=== PATIENT | female | born 1980 | race Caucasian/White ===

== ENCOUNTER 2016-09-18 06:58 | Day surgery (SDC) | payer OTHER ==
[2016-09-17 17:55] VITALS: BMI 40.6
[~2016-09-18] VITALS: Ht 162.6 cm; Wt 108.0 kg
[2016-09-18] VITALS (17 sets, daily range): BP systolic 90–121; BP diastolic 44–73; PULSE 77–116; RESP 14–20; Ht 162.6 cm; Wt 108.0 kg
--- NOTE | 2016-09-18 00:31 | PREOPHP ---
DATE OF ADMISSION: 09/18/2016 PROCEDURE: Cervical cerclage. HISTORY OF PRESENT ILLNESS: This is to a 36-year-old female, 1, para 0 with an EDC of 02/03. This patient started seeing me September 15 with the perinatologist's consultation for a cer clage as soon as possible due to cervical incompetence. The patient is 19 and 6/7th week, actually 20 weeks and had an incompetent cervix diagnosed by the perinatologist and she was referred right away for a cerclage. The cervix was short with some dilatation. PAST MEDICAL HISTORY: She had a history of lap band and lost over 100 pounds. ALLERGIES: 1. PENICILLIN. 2. LATEX. SOCIAL HISTORY: No other pertinent history. FAMILY HISTORY: Also diabetes on her dad's side. PHYSICAL EXAMINATION: VITAL SIGNS: Stable. She is 5 feet 4 inches. She weighs 240 pounds and her blood pressure is 118/ 80. HEAD AND NECK: Normal. CHEST: Clear. HEART: Normal sinus rhythm. LUNGS: Clear. BREASTS: Soft, nontender, no masses. ABDOMEN: Soft, nontender, no masses. Uterus at 20 weeks and heart tones were florina l. EXTREMITIES: Normal. PELVIC: With a short cervix with fingertip dilatation and membranes intact. EXTREMITIES: Normal with normal pulses and no edema. DIAGNOSES: 1. Twenty weeks' . 2. Cervical incompetence. 3. Previous laparoscopic band. 4. Obesity. PLAN: She is undergoing a Lam cerclage. The patient has been advised of the possible risks an d possible complications of the procedure with her alternatives and options. Written information was provided. She had no more questions and agreed to go ahead with the procedure with full understand ing and no more questions. Dictated By: ELIGIO HUGHES/BEST Conf#: [id number] DID#: [id number]
[~2016-09-18 06:58] MED LIST: FER325 PO; FOLI-49 PO; PRENAT PO
[2016-09-18 08:33] LABS: BASOPHIL # 0.1 10^3/ul (0.0-0.1); BASOPHILS % 0.5 % (0.0-2.0); EOSINOPHILS # 0.2 10^3/ul (0.0-0.5); EOSINOPHILS % 1.7 % (0.0-7.0); HEMATOCRIT 34.9 % (37.0-47.0); HEMOGLOBIN 12.1 g/dl (12.0-16.0); LYMPHOCYTES # 2.1 10^3/ul (0.8-2.9); LYMPHOCYTES % 18.8 % (15.0-51.0); MEAN CORPUSCULAR HEMOGLOBIN 30.2 pg (29.0-33.0); MEAN CORPUSCULAR HGB CONC 34.6 g/dl (32.0-37.0); MEAN CORPUSCULAR VOLUME 87.4 fl (82.0-101.0); MEAN PLATELET VOLUME 7.8 fl (7.4-10.4); MONOCYTE # 0.7 10^3/ul (0.3-0.9); MONOCYTES % 5.8 % (0.0-11.0); NEUTROPHIL # 8.2 10^3/ul (1.6-7.5); NEUTROPHILS % 73.2 % (39.0-77.0); PLATELET COUNT 259 10^3/UL (140-440); RED CELL DISTRIBUTION WIDTH 13.3 % (11.5-14.5); UNCORRECTED WBC 11.2 10^3/ul (4.8-10.8); WHITE BLOOD COUNT 11.2 10^3/ul (4.8-10.8)
[2016-09-18 08:37] LABS: CONDITION 1
[2016-09-18 08:42] LABS: INR 1.01; PROTIME 13.3 Sec (12.2-14.2)
[2016-09-18 08:43] LABS: PARTIAL THROMBOPLASTIN TIME 26.9 Sec (25.0-35.0)
[2016-09-18] MEDS ORDERED: MIDAZOLAM 1 MG/ML 2 ML INJ ONE (09:46)
[2016-09-18] MEDS ORDERED: METOCLOPRAMIDE 10 MG INJ ONE (10:07)
[2016-09-18] MEDS ORDERED: HYDROmorphONE (0.2 MG/ML) 10ML SYG IV PRN ×3 (10:30)
[2016-09-18] MEDS ORDERED: DIPHENHYDRAMINE 50 MG INJ IV PRN (10:30)
[2016-09-18] MEDS ORDERED: METOCLOPRAMIDE 10 MG INJ IV PRN (10:30)
[2016-09-18] MEDS ORDERED: MEPERIDINE 25 MG INJ IV PRN (10:30)
[2016-09-18] MEDS ORDERED: CEFAZOLIN 1 GM INJ ONE (10:45)
[2016-09-18] MEDS ORDERED: EPHEDrine SULFATE 50 MG/5 ML SYG ONE (10:45)
--- NOTE | 2016-09-18 11:27 | PD.PPDC ---
GENERAL SUPERVISOR Discharge Instruction Condition Patient Condition: Good Diet Diet: Resume Regular Diet Activity/Restrictions Activity: Bedrest May be up to bathroom May be up for meals May Shower Restrictions: No Exercising No Lifting No Driving No Sexual Activity Nothing in the Vagina No [place] No Tampons, douche Follow-up Follow-up with Physician: 1, Week/Weeks Return to clinic for TAIL [facility]YER Instructions: Fever greater than 101 Chills Worsening abdominal pain Excessive Vaginal Bleeding More than 2 pads per hour Unable to tolerate diet ELIGIO CASTRO MD Sep 18, 2016 11:26
--- NOTE | 2016-09-18 11:29 | OPPN ---
Date/Time of Note Date/Time of Note DATE: 09/18/16 TIME: 11:27 Operative/Procedure Note Pre-Operative Diagnosis cervical incompetence 20 weeks Post-Operative Diagnosis same Surgeon: ELIGIO CASTRO MD Anesthesiologist: XOCHILT MARMOLEJO MD Estimated blood loss: minimal Specimens: Not Applicable Complications: None Anesthesia type: spinal ELIGIO CASTRO MD Sep 18, 2016 11:29
[2016-09-18] MEDS ORDERED: HYDROCODONE/APAP (5/325) TAB PO PRN (11:30)
[2016-09-18] MEDS ORDERED: NIFEdipine 10 MG CAP PO SCH (12:00)
--- NOTE | 2016-09-18 13:29 | OPR ---
DATE OF OPERATION: 09/18/2016 OPERATION PERFORMED: Cervical cerclage Lam procedure. PREOPERATIVE DIAGNOSES: Incompetent cervix, 20-week . POSTOPERATIVE DIAGNOSIS: Incompetent cervix, 20-week SURGEON: Eligio Naik MD ANESTHESIA: Dr. Banuelos DESCRIPTION OF PROCEDURE: The patient was given spinal anesthesia and placed in the supine position . The perineal and vaginal area were prepped and draped and a vaginal speculum was applied. The an terior and posterior cervix was held with a ring forceps and a #5 mersilene suture was passed throug h the cervix at the cervical vaginal junction at 12 o'clock, 3 o'clock, 6 o'clock, 3 o'clock, and 12 o'clock again, was suture tied and the stumps of the sutures were tacked to both sides with a singl e stitch with #1 nylon. The procedure was finished with a very small amount of bleeding, about 5 mL . There was no rupture of membranes. The patient tolerated the procedure well and was sent to the recovery room in good condition and stable. Dictated By: ELIGIO HUGHES/BEST Conf#: [id number] DID#: [id number]
[2016-09-18] MEDS ORDERED: NIFEdipine (XL) 30 MG TAB PO ONE (17:00)
[2016-09-18] MEDS ORDERED: TERBUTALINE 1 MG/ML INJ SC PRN (17:00)
--- NOTE | 2016-09-19 00:13 | PN ---
Date/Time of Note Date/Time of Note DATE: 09/19/16 TIME: 00:11 OB Subjective Subjective Subjective 36 yo P0 @ 20wks gestation, w incompetent cervix, s/p cerclage was having ctx, now diminshed; no complaints OB Objective Objective Objective Abdomen- gravid, n/t [place]- no ctx OB Assessment/Plan Other Assessment: 36 yo s/p cercalge placement, no ctx Other plan: Since it is midnight, patient would like to stay in hospital until morning d/c home tomorrow ENE CHILDRESS MD Sep 19, 2016 00:13
[2016-09-19] MEDS ORDERED: CEPHALEXIN 500 MG CAP PO ONE (08:00)
[2016-09-19] MEDS ORDERED: NIFEdipine 10 MG CAP PO ONE (08:00)
== END 2016-09-19 10:30 | disposition home or self-care (01) ==
LOC: SDS 06:58 → OBG 17:57 → SDS 09-19 10:30
PROVIDERS: ATTEND Obstetrics & Gynecology
DX: O34.32 Maternal care for cervical incompetence, second trimester (principal); Z3A.20 20 weeks gestation of pregnancy; E66.9 Obesity, unspecified; Z68.41 Body mass index [BMI] 40.0-44.9, adult
CPT/HCPCS: 59320; 85025; 85610; 85730; 86900; 86901; J0690; J2250; J2765; Z7512; Z7610

== ENCOUNTER 2016-09-28 01:39 | Emergency (ER) | payer OTHER ==
[~2016-09-28] VITALS: Ht 162.6 cm; Wt 109.0 kg
[2016-09-28 01:50] VITALS: Ht 162.6 cm; Wt 109.0 kg
[2016-09-28] MEDS ORDERED: LIDOCAINE/MYLANTA 40 ML BTL PO STA (02:47)
[2016-09-28] MEDS ORDERED: ONDANSETRON 4 MG INJ IV STA (02:47)
[2016-09-28] MEDS ORDERED: SOD CHLORIDE 0.9% 500 ML IV STA (02:47)
[2016-09-28 03:26] LABS: BASOPHILS % 0.3 % (0.0-2.0); EOSINOPHILS # 0.3 10^3/ul (0.0-0.5); EOSINOPHILS % 2.2 % (0.0-7.0); HEMATOCRIT 37.5 % (37.0-47.0); HEMOGLOBIN 12.8 g/dl (12.0-16.0); LYMPHOCYTES # 2.2 10^3/ul (0.8-2.9); LYMPHOCYTES % 16.6 % (15.0-51.0); MEAN CORPUSCULAR HEMOGLOBIN 29.7 pg (29.0-33.0); MEAN CORPUSCULAR HGB CONC 34.2 g/dl (32.0-37.0); MEAN CORPUSCULAR VOLUME 87.1 fl (82.0-101.0); MEAN PLATELET VOLUME 7.9 fl (7.4-10.4); MONOCYTE # 0.8 10^3/ul (0.3-0.9); MONOCYTES % 6.4 % (0.0-11.0); NEUTROPHIL # 9.7 10^3/ul (1.6-7.5); NEUTROPHILS % 74.5 % (39.0-77.0); PLATELET COUNT 320 10^3/UL (140-440); RED BLOOD COUNT 4.31 10^6/ul (4.20-5.40); RED CELL DISTRIBUTION WIDTH 13.6 % (11.5-14.5)
[2016-09-28 03:28] LABS: ADD UMIC YES; URINE BILIRUBIN (Dip) NEGATIVE (NEGATIVE); URINE BLOOD (Dip) TRACE (NEGATIVE); URINE COLOR LT. YELLOW (YELLOW); URINE GLUCOSE (Dip) NEGATIVE (NEGATIVE); URINE KETONES (Dip) NEGATIVE (NEGATIVE); URINE LEUKOCYTE ESTERASE (Dip) NEGATIVE (NEGATIVE); URINE NITRITE (Dip) NEGATIVE (NEGATIVE); URINE TOTAL PROTEIN (Dip) NEGATIVE (NEGATIVE); URINE UROBILINOGEN (Dip) 0.2 E.U./dL (0.1-1.0)
[2016-09-28 03:30] LABS: CONDITION 1
[2016-09-28 03:33] LABS: ALBUMIN 3.3 g/dl (3.3-4.9); POTASSIUM 4.1 mmol/L (3.5-5.1)
[2016-09-28 03:35] LABS: BILIRUBIN,INDIRECT 0.1 mg/dl (0-1.1); BILIRUBIN,TOTAL 0.1 mg/dl (0.2-1.3); CREATININE 0.55 mg/dl (0.44-1.00)
[2016-09-28 03:36] LABS: ALBUMIN/GLOBULIN RATIO 1.06; CALCIUM 9.3 mg/dl (8.4-10.2); TOTAL PROTEIN 6.4 g/dl (6.1-8.1)
[2016-09-28 03:55] LABS: SQUAMOUS EPITHELIAL CELL,UR MODERATE
--- NOTE | 2016-09-28 05:11 | ERD ---
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 HPI Is a 28-year-old female with epigastric abdominal pain for the past 2-3 days. Pain is gotten progressively worse. Pain is burning sensation. Makes it difficult for patient to breathe. Patient is 21 weeks . No nausea. No vomiting. No fevers. No chills. No other current complaints. ROS All systems reviewed and are negative except as per history of present illness. Medications Home Meds Reported Medications Multivit/Min/Fol Ac/Iron/Pren* ( S*) 1 Tab Tab, 1 TAB PO DAILY, TAB 09/17/16 Ferrous Sulfate* (Ferrous Sulfate*) 325 Mg Tabec, 325 MG PO DAILY, TAB 09/17/16 Folic Acid* (Folic Acid*) 1 Mg Tablet, 1 MG PO DAILY, TAB 09/17/16 Allergies Allergies: Coded Allergies: latex (Verified Allergy, Severe, HIVES, 09/18/16) amoxicillin (Verified Allergy, Intermediate, SWELLING, 09/18/16) shrimp (Verified Allergy, Unknown, swelling, 09/18/16) Uncoded Allergies: hot dogs (Allergy, Severe, diarrhea/, 09/18/16) PMhx/Soc History of Surgery: Yes (LAP BAND) Anesthesia Reaction: No Hx Neurological Disorder: No Hx Respiratory Disorders: No Hx Cardiac Disorders: No Hx Psychiatric Problems: No Hx Miscellaneous Medical Probl: No Hx Alcohol Use: No Hx Substance Use: No Hx Tobacco Use: No Smoking Status: Never smoker Physical Exam Vitals Vital Signs Date Time Temp Pulse Resp B/P Pulse Ox O2 Delivery O2 Flow Rate FiO2 09/28/16 01:50 97.7 90 22 131/81 100 Physical Exam Const: [] Head: Atraumatic Eyes: Normal Conjunctiva ENT: Normal External Ears, Nose and Mouth. Neck: Full range of motion..~ No meningismus. Resp: Clear to auscultation bilaterally Cardio: Regular rate and rhythm, no murmurs Abd: Soft, non tender, non distended. Normal bowel sounds Skin: No petechiae or rashes Back: No midline or flank tenderness Ext: No cyanosis, or edema Neur: Awake and alert Psych: Normal Mood and Affect Result Diagram: 09/28/1625309/28/16253 Results 24 hrs Laboratory Tests Test 09/28/16 02:54 Alanine Aminotransferase (ALT/SGPT) 18IU/L Albumin 3.3g/dl Albumin/Globulin Ratio 1.06 Alkaline Phosphatase 74IU/L Anion Gap 13 Aspartate Amino Transf (AST/SGOT) 17IU/L Basophils # 0.010^3/ul Basophils % 0.3% Blood Urea Nitrogen 7mg/dl Calcium Level 9.3mg/dl Carbon Dioxide Level 25mmol/L Chloride Level 107mmol/L Creatinine 0.55mg/dl Direct Bilirubin 0.00mg/dl Eosinophils # 0.310^3/ul Eosinophils % 2.2% Globulin 3.10g/dl Glucose Level 94mg/dl Hematocrit 37.5% Hemoglobin 12.8g/dl Indirect Bilirubin 0.1mg/dl Lipase 218U/L Lymphocytes # 2.210^3/ul Lymphocytes % 16.6% Mean Corpuscular Hemoglobin 29.7pg Mean Corpuscular Hemoglobin Concent 34.2g/dl Mean Corpuscular Volume 87.1fl Mean Platelet Volume 7.9fl Monocytes # 0.810^3/ul Monocytes % 6.4% Neutrophils # 9.710^3/ul Neutrophils % 74.5% Nucleated Red Blood Cells # 0.010^3/ul Nucleated Red Blood Cells % 0.0/100WBC Platelet Count 01381^3/UL Potassium Level 4.1mmol/L Red Blood Count 4.3110^6/ul Red Cell Distribution Width 13.6% Sodium Level 141mmol/L Total Bilirubin 0.1mg/dl Total Protein 6.4g/dl Urine Bilirubin NEGATIVE Urine Clarity CLEAR Urine Color LT. YELLOW Urine Glucose NEGATIVE% Urine Hemoglobin TRACE Urine Ketones NEGATIVE Urine Leukocyte Esterase NEGATIVE Urine Microscopic RBC 2-5/HPF Urine Microscopic WBC 0-2/HPF Urine Nitrite NEGATIVE Urine Specific [place] 1.015 Urine Squamous Epithelial Cells MODERATE Urine Total Protein NEGATIVE Urine Urobilinogen 0.2 E.U./dL Urine pH 6.0 White Blood Count 13.010^3/ul Current Medications Medications (Trade) Dose Ordered Sig/Nila Route PRN Reason Start Time Stop Time Status Last Admin Dose Admin Sodium Chloride (NS) 500 ml @ 500 mls/hr Q1H STAT IV 09/28/16 02:47 09/28/16 03:46 DC 09/28/16 03:10 Ondansetron HCl (Zofran Inj) 4 mg ONCE STAT IV 09/28/16 02:47 09/28/16 02:48 DC 09/28/16 03:09 Miscellaneous Medication (Gi Cocktail (2)) 40 ml ONCE STAT PO 09/28/16 02:47 09/28/16 02:48 DC 09/28/16 03:09 Procedures/MDM CBC: [no e/o of systemic infection or severe anemia] CMP: [no e/o severe acidosis, alkalosis, renal failure, diabetic ketoacidosis, liver disease] Lipase: [no e/o pancreatitis] PT/INR: [normal coagulation] Urine: [no e/o acute infection or hematuria] Medical decision-making: This patient comes in with essentially gastritic-like pain. Pain since resolved with administration of GI cocktail. She will be discharged upstairs to OB L&D for monitoring. Departure Diagnosis: Primary Impression: Abdominal pain Abdominal location: epigastric Qualified Code: R10.13 - Epigastric pain Additional Impression: Weeks of gestation: 21 weeks Qualified Code: Z3A.21 - 21 weeks gestation of Condition: Stable DG DEL ANGEL Sep 28, 2016 05:11
[2016-09-28 05:25] VITALS: BP 120/74; PULSE 81; RESP 18; TEMP 98
[2016-09-28] MEDS ORDERED: PRO20 PO (06:26)
[2016-09-28] MEDS ORDERED: CEPH500C PO (06:27)
== END 2016-09-28 06:01 | disposition home or self-care (01) ==
LOC: E/R 01:39
DX: O26.892 Other specified pregnancy related conditions, second trimester (principal); R10.13 Epigastric pain; Z3A.21 21 weeks gestation of pregnancy; Z91.040 Latex allergy status
CPT/HCPCS: 36415; 80053; 81001; 83690; 85025; 96374; J2405; J7040; Z7502; Z7610; 81003

== ENCOUNTER 2016-09-28 06:10 | Inpatient (IN) | payer OTHER ==
[~2016-09-28] VITALS: Ht 160 cm; Wt 108.9 kg
[2016-09-28] MEDS ORDERED: PRO20 PO (06:26)
[2016-09-28] MEDS ORDERED: CEPH500C PO (06:27)
[2016-09-28 06:28] VITALS: Ht 160 cm; Wt 108.9 kg
[2016-09-28] MEDS ORDERED: BUTORPHANOL 2 MG INJ IV PRN (08:30)
--- NOTE | 2016-09-28 08:46 | TRIAGE ---
OB Triage Datetime Report Generated by CPN: 09/28/2016 08:46 Datetime: 09/28/2016 08:07 Stage of : OB Triage Datetime: 09/28/2016 08:05 Stage of : OB Triage Labor Evaluation Frequency: NONE Monitor Mode: External Heart Rate FHR Baseline Rate: 150 Monitor Mode: External US Variability: Moderate 6-25 bpm Accelerations: 10X10 Decelerations: None Category: Category I Pain Assessment Pain Scale: 4 Pain Presence: Constant Pain Type: Dull Pain Location: Back Pain Goal: 3 Pain Assessment Comments: PT STATES THAT HER BACK MAY BE HURTING BECAUSE SHE BEEN IN THE GURNEY SI NCE SHE GOT HERE IN THE HOSPITAL. PAIN MEDICATION OFFER AND PT DENIES THE NEED FOR PAIN MEDICATIO N AT THIS TIME. Datetime: 09/28/2016 08:00 Stage of : OB Triage Labor Evaluation Frequency: NONE Monitor Mode: External Monitor Mode: External US Pain Assessment Pain Scale: 4 Pain Presence: Constant Pain Type: N/A Pain Goal: 3 Datetime: 09/28/2016 07:23 Monitor Mode: External US Comments: OFF Datetime: 09/28/2016 07:17 Stage of : OB Triage Labor Evaluation Frequency: NONE Monitor Mode: External Heart Rate FHR Baseline Rate: 150 Monitor Mode: External US Variability: Moderate 6-25 bpm Accelerations: 10X10 Decelerations: None Category: Category I Comments: UNABLE TO KEEP BABY ON MONITOR, DOPPLER DONE AND A STRIP DONE FOR 4 MINUTES Datetime: 09/28/2016 07:16 Stage of : OB Triage Datetime: 09/28/2016 07:00 Stage of : OB Triage Temperature Route: Oral Labor Evaluation Frequency: 0 (Annotations: PT. OBESE) Monitor Mode: External Resting Tone [place]: Relaxed Heart Rate FHR Baseline Rate: 140 (Annotations: IN THE MIDDLE NEAR PUBIC HAIR LINE) Monitor Mode: Doppler Accelerations: HEARD Datetime: 09/28/2016 06:43 Assessment Type: Triage Maternal Assessment Level of Consciousness: Fully Conscious DTR's/Clonus: DTRs 2+; No Clonus Headache: Denies Blurred Vision: No Respiratory Effort: Labored (Annotations: PT. FEELS LITTLE HAEVY ON CHEST 98% SATURATION ON ROOM AIR) Breath Sounds, Left: Clear and Equal Breath Sounds, Right: Clear and Equal Nausea/Vomiting: Present RUQ Epigastric Pain: Denies Lower Extremities Edema: Bilateral Lower Extremities Upper Extremities Edema: None Facial Edema: None Fall Risk Assessment History of Falling: (0) No Secondary Diagnosis: (0) No Ambulatory Aid: (0) Bedrest/Nurse Assist IV Therapy: (0) No Gait: (0) Normal/Bedrest/Immobile Mental Status: (0) Oriented to Own Ability Fall Score: 0 Fall Risk Score Definition: No Risk: No action required Datetime: 09/28/2016 06:38 Time of Arrival: 09/28/2016 06:10 EGA: 21.5 Arrived By: Wheelchair Arrived From: Emergency Dept Chief Complaint: CAME TO ER FOR SOB, CLEARED FROM ER, NOW HERE TO CLEAR BABY AND MOM Movement: Present Contractions: Denies/Absent Rupture of Membranes: Denies Vaginal Bleeding: None Recent Sexual Intercouse: Denies Patient Complaints: None Additional Patient Complaints: HAD CERCLAGE DONE ON 09/18/16 FOR SHORT CERVIX PT. GOES TO DR REYNOSO PERINATOLOGIST AT [facility], NEXT APPT. 09/29/16 AT 1100 Time Provider Notified: 09/28/2016 07:18 Provider Notified: ABUSLEME Initial Plan: EFM, ASSESSMENT, CALL MD FOR ORDER CX LENGHT Datetime: 09/19/2016 07:37 Assessment Type: ANTEPARTUM OBSERVATION POST CERCLAGE FOR CRAMPING Maternal Assessment Level of Consciousness: Fully Conscious DTR's/Clonus: DTRs 2+; No Clonus Headache: Denies Blurred Vision: No Respiratory Effort: Unlabored; Regular Rhythm; Equal Expansion Breath Sounds, Left: Clear and Equal Breath Sounds, Right: Clear and Equal Nausea/Vomiting: Denies RUQ Epigastric Pain: Denies Lower Extremities Edema: None Degree: None Upper Extremities Edema: None Degree: None Facial Edema: None Fall Risk Assessment History of Falling: (0) No Secondary Diagnosis: (0) No Ambulatory Aid: (0) Bedrest/Nurse Assist IV Therapy: (0) No Gait: (0) Normal/Bedrest/Immobile Mental Status: (0) Oriented to Own Ability Fall Score: 0 Fall Risk Score Definition: No Risk: No action required Datetime: 09/19/2016 07:30 Stage of : Recovery Datetime: 09/19/2016 07:18 Respiratory Effort: Unlabored Breath Sounds, Left: Clear and Equal Breath Sounds, Right: Clear and Equal Pain Presence: None/Denies Vaginal Bleeding: Scant Datetime: 09/19/2016 06:30 Labor Evaluation Frequency: 0 Monitor Mode: External Datetime: 09/19/2016 05:53 Pain Assessment Pain Scale: 0 Pain Presence: None/Denies Pain Type: N/A Pain Goal: 0 Datetime: 09/19/2016 05:30 Labor Evaluation Frequency: 0 Monitor Mode: External Contraction Comments: Pt moving positions, reports no cramping at this time Datetime: 09/19/2016 04:30 Labor Evaluation Frequency: 0 Monitor Mode: External Datetime: 09/19/2016 03:30 Labor Evaluation Frequency: 0 Monitor Mode: External Datetime: 09/19/2016 02:30 Labor Evaluation Frequency: 0 Monitor Mode: External Datetime: 09/19/2016 01:30 Contraction Comments: PT REPORTS FEELING CRAMPING 2-3 TIMES IN THE LAST 2 HOURS; "I STARTED FEELIN G ACHES IN BACK AND A LITTLE PAIN SINCE MY EXAMS IN THIS PAST WEEK, BUT BEFORE MY APPTS I DIDN'T FEE L ANYTHING." Datetime: 09/19/2016 01:13 Pain Assessment Pain Scale: 0 Pain Presence: None/Denies Pain Type: N/A Pain Goal: 0 Datetime: 09/19/2016 01:05 Pain Assessment Pain Scale: 0 Pain Presence: None/Denies Pain Type: N/A Pain Goal: 0 Datetime: 09/19/2016 01:04 Pain Assessment Pain Scale: 0 Pain Presence: None/Denies Pain Type: N/A Pain Goal: 0 Datetime: 09/19/2016 01:03 Pain Assessment Pain Scale: 0 Pain Presence: None/Denies Pain Type: N/A Pain Goal: 0 Datetime: 09/19/2016 00:00 Monitor Mode: External Quality: Mild Resting Tone [place]: Relaxed Contraction Comments: CRAMP X1/HR Datetime: 09/18/2016 23:27 Pain Assessment Pain Scale: 0 Pain Presence: None/Denies Pain Type: N/A Pain Goal: 0 Datetime: 09/18/2016 23:26 Pain Assessment Pain Scale: 0 Pain Presence: None/Denies Pain Type: N/A Pain Goal: 0 Datetime: 09/18/2016 23:06 Vaginal Exam Membrane Status: Intact Datetime: 09/18/2016 23:00 Monitor Mode: External Quality: Mild Resting Tone [place]: Relaxed Contraction Comments: CRAMP X1 Datetime: 09/18/2016 22:00 Monitor Mode: External Quality: Mild Resting Tone [place]: Relaxed Contraction Comments: LIGHT CRAMPING PER PT REPORT Datetime: 09/18/2016 21:00 Monitor Mode: External Quality: Mild Resting Tone [place]: Relaxed Contraction Comments: LIGHT CRAMPING PER PT REPORT Datetime: 09/18/2016 20:25 Assessment Type: ANTEPARTUM OBSERVATION POST CERCLAGE FOR CRAMPING Maternal Assessment Level of Consciousness: Fully Conscious DTR's/Clonus: DTRs 2+; No Clonus Headache: Denies Blurred Vision: No Respiratory Effort: Unlabored; Regular Rhythm; Equal Expansion Breath Sounds, Left: Clear and Equal Breath Sounds, Right: Clear and Equal Nausea/Vomiting: Denies RUQ Epigastric Pain: Denies Lower Extremities Edema: None Degree: None Upper Extremities Edema: None Degree: None Facial Edema: None Fall Risk Assessment History of Falling: (0) No Secondary Diagnosis: (0) No Ambulatory Aid: (0) Bedrest/Nurse Assist IV Therapy: (0) No Gait: (0) Normal/Bedrest/Immobile Mental Status: (0) Oriented to Own Ability Fall Score: 0 Fall Risk Score Definition: No Risk: No action required Pain Assessment Pain Scale: 0 Pain Presence: None/Denies Pain Type: N/A Pain Goal: 0 Datetime: 09/18/2016 20:03 Monitor Mode: External Quality: Mild Resting Tone [place]: Relaxed Contraction Comments: PT REPORTS CRAMPING 1-2 TIMES IN HR Datetime: 09/18/2016 19:45 Stage of : Antepartum Datetime: 09/18/2016 18:50 Comments: reports of UC by patient Pain Assessment Pain Scale: 6 Pain Presence: Intermittent Pain Type: Cramping; Contraction Pain Location: Abdomen Pain Goal: 5 Pain Relief Measures: Comfort Measures
[2016-09-28] MEDS: LACTATED RINGER'S 1,000 ML IV SCH ×3 (09:15→23:58)
[2016-09-28] MEDS: DOCUSATE SODIUM 100 MG CAP PO SCH (09:49)
[2016-09-28] MEDS: FERROUS SULFATE (EC) 325 MG TAB PO SCH (09:49)
[2016-09-28] MEDS: MULTIVIT/MIN/FOLATE/IRON/PREN TAB PO SCH (09:49)
--- NOTE | 2016-09-28 10:04 | RADRPT ---
PROCEDURE: Limited OB ultrasound for cervical length. CLINICAL INDICATION: labor. Recent cerclage. TECHNIQUE: Sonographic evaluation to assess the cervical length was performed. Transvaginal imagi ng of the gravid uterus was performed. COMPARISON: None available FINDINGS: The transvaginal cervical length equals 0.7 cm. There is a 1.7 cm rounded echogenic structure of the proximal portion of the cervix which may be related to recent cerclage. presentation is cepha lic. The placenta is anterior. There is no evidence of abruption or placenta previa. Positive fet al heart tones are seen. The heart rate equal 143 bpm. IMPRESSION: 1. Cervical length equals 0.7 by transvaginal examination. There is a 1.7 cm echogenic rounded lesio n just deep to the cervix which is nonspecific and may be related to recent cerclage. Clinical ferny elation and follow-up is recommended. RPTAT: KK .Preston Carney MD, MD Date Time Electronically viewed and signed by .Preston Carney MD, on 09/28/2016 10:04 .B/
[2016-09-28] MEDS ORDERED: CLINDAMYCIN 900 MG INJ IM ONE (12:00)
[2016-09-28] MEDS ORDERED: CLINDAMYCIN 300 MG INJ IV SCH (12:00)
[2016-09-28] MEDS: NIFEdipine 10 MG CAP PO SCH ×2 (12:37→18:28)
[2016-09-28] MEDS ORDERED: CLINDAMYCIN 600 MG/D5W (PMX) 50 ML IVPB SCH ×2 (13:00→18:00)
[2016-09-28] MEDS ORDERED: PROGESTERONE 100 MG CAP VAG SCH (21:00)
--- NOTE | 2016-09-28 22:06 | HP ---
DATE OF ADMISSION: 09/28/2016 HISTORY OF PRESENT ILLNESS: The patient is a 36-year-old G1, P0, who presents at ____-1/2 weeks wit h a short cervix and a probable UTI. The patient was seen in the office by Dr. Naik and found t o have a short cervix with some abdominal pain and some urinary symptoms. The patient at that point was to be admitted to the hospital for observation. ____ fluid, no vaginal bleeding, positive feta l movement. PAST MEDICAL HISTORY: None. PAST SURGICAL HISTORY: None. MEDICATIONS: Procardia. PHYSICAL EXAMINATION: VITAL SIGNS: Stable. HEART: Regular rate and rhythm. LUNGS: Clear to auscultation bilaterally. ABDOMEN: Soft, nontender. No rebound or guarding. Fundal height is 20 cm. EXTREMITIES: There is no edema. DIAGNOSTIC DATA: Ultrasound shows an intrauterine , cervical length of 0.8 mm. The patien t is status post cerclage approximately 1 week ago. ASSESSMENT: Intrauterine at ____-1/2 weeks with incompetent cervix, status post cerclage 1 week ago now with urinary symptoms. The patient will be admitted for observation, started on clin damycin for urinary tract infection. Procardia for possible uterine contractions and also progester one for a short cervix. Risks and benefits of admission discussed with patient. The patient will a lso be in consultation with Charles and further management will also be based on MFM's suggestions. Dictated By: ZULEMA AGEE MD /NTS Conf#: [id number] DID#: [id number] CC: ELIGIO NAIK MD;*EndCC*
[2016-09-28] MEDS: CLINDAMYCIN 600 MG/D5W (PMX) 50 ML IVPB SCH (23:57)
--- NOTE | 2016-09-28 23:57 | RADRPT ---
PROCEDURE: US OB. CLINICAL INDICATION: Possible spontaneous rupture of membranes. TECHNIQUE: Multiple sonographic images of the pelvis were obtained. The images were reviewed on a PACS workstation. COMPARISON: No prior studies are available for comparison. FINDINGS: There is a single viable intrauterine gestation. Cardiac activity is present with 152 beats per min barb. There is a cephalic presentation. Measurements were made in order to determine age. The results are as follows: BPD =5.43 cm HC =19.88 cm AC =17.32 cm FL =3.66 cm. Estimated gestational age of approximately 22 weeks and 1 day. The estimated date of delivery is 01/31/2017. The EFW = 468 g . There are no adnexal masses.. IMPRESSION: Single live intrauterine gestation of approximately 22 weeks and 1 day. The estimated date of deliv sudarshan is 01/31/2017 . RPTAT: UU Physician Titus Date Time Electronically viewed and signed by Physician Titus on 09/28/2016 23:57 RS/
[2016-09-29 01:09] LABS: INR 0.99; PARTIAL THROMBOPLASTIN TIME 28.6 Sec (25.0-35.0); PROTIME 13.1 Sec (12.2-14.2)
[2016-09-29] MEDS: NIFEdipine 10 MG CAP PO SCH ×3 (01:17→11:53)
[2016-09-29 01:21] LABS: BASOPHILS % 0.3 % (0.0-2.0); EOSINOPHILS # 0.2 10^3/ul (0.0-0.5); EOSINOPHILS % 1.8 % (0.0-7.0); HEMATOCRIT 35.1 % (37.0-47.0); LYMPHOCYTES # 2.8 10^3/ul (0.8-2.9); LYMPHOCYTES % 23.9 % (15.0-51.0); MEAN CORPUSCULAR HEMOGLOBIN 29.8 pg (29.0-33.0); MEAN CORPUSCULAR HGB CONC 34.1 g/dl (32.0-37.0); MEAN CORPUSCULAR VOLUME 87.2 fl (82.0-101.0); MEAN PLATELET VOLUME 8.1 fl (7.4-10.4); MONOCYTE # 0.7 10^3/ul (0.3-0.9); MONOCYTES % 5.9 % (0.0-11.0); NEUTROPHIL # 7.8 10^3/ul (1.6-7.5); NEUTROPHILS % 68.1 % (39.0-77.0); PLATELET COUNT 290 10^3/UL (140-440); RED BLOOD COUNT 4.03 10^6/ul (4.20-5.40); RED CELL DISTRIBUTION WIDTH 13.4 % (11.5-14.5); UNCORRECTED WBC 11.5 10^3/ul (4.8-10.8); WHITE BLOOD COUNT 11.5 10^3/ul (4.8-10.8)
[2016-09-29 01:25] LABS: CONDITION 1; POTASSIUM 3.8 mmol/L (3.5-5.1)
[2016-09-29 01:27] LABS: CREATININE 0.54 mg/dl (0.44-1.00)
[2016-09-29 01:28] LABS: ALBUMIN/GLOBULIN RATIO 0.96; TOTAL PROTEIN 6.1 g/dl (6.1-8.1)
[2016-09-29 01:29] LABS: CALCIUM 9.4 mg/dl (8.4-10.2)
[2016-09-29] MEDS ORDERED: AZITHROMYCIN 500 MG in SOD CHLORIDE 0.9% 250 ML IVPB SCH (02:00)
[2016-09-29] MEDS: AZITHROMYCIN 500MG/NS (PMX) 250 ML IV SCH (02:14)
--- NOTE | 2016-09-29 02:47 | PN ---
Date/Time of Note Date/Time of Note DATE: 09/29/16 TIME: 02:32 OB Subjective Subjective Subjective Nurse called to evaluate patient. She states patient is c/o leakage of fluid. The patient is a 36 y/o G1 with SIUP at 21 6/7 wks, cx insufficiency (CL: 0.8) and possible UTI admitted for close follow up. OB Objective Objective Objective General: Patient appears well, alert and oriented, NAD, appropriate mood and affect Heart: Regular rhythm and rate. No murmur. Normal S1, S2 Lung: clear to auscultation (bilateral) ABD: gravid, soft, non-tender. Back: No CVA tenderness (B/L) LE: No clubbing, cyanosis, edema, thigh or calf tenderness bilaterally FHT: 135, regular (by nurse) Contractions: Occasional Speculum exam: LOF, clear. Nitrazine is positive OB Assessment/Plan Other plan: 36 y/o G1 with SIUP at 21 6/7 wks, cx insufficiency (CL: 0.8), PPROM and possible UTI: - Check vital sign and close follow up for s/sx of infection - Ob- US performed, minimal AF - Exam, us result, management (expectant vs termination) with R/B/A discussed with patient in detail. She expressed understanding. She is currently undecided - Ab: Azithro or Erythromycine added to clindamyccine (Currently on clinda due to UTI) - MFM consult MEDARDO PAINTER Sep 29, 2016 02:46
[2016-09-29] MEDS: CLINDAMYCIN 600 MG/D5W (PMX) 50 ML IVPB SCH ×3 (06:26→17:47)
[2016-09-29] MEDS: FERROUS SULFATE (EC) 325 MG TAB PO SCH (09:08)
[2016-09-29] MEDS: MULTIVIT/MIN/FOLATE/IRON/PREN TAB PO SCH (09:08)
[2016-09-29] MEDS: DOCUSATE SODIUM 100 MG CAP PO SCH (09:08)
[2016-09-29] MEDS: LACTATED RINGER'S 1,000 ML IV SCH ×2 (11:52→21:39)
--- NOTE | 2016-09-29 12:21 | PN ---
Date/Time of Note Date/Time of Note DATE: 09/29/16 TIME: 12:08 OB Subjective Subjective Subjective patient ROM last nite at around 9pm now with cerclage in place but with some pain leukocytosis, possible impending labor and delivery. patient was explained. OB Objective HEENT: WNL Heart: Rhythm Normal Lungs: Clear, Equal Abdomen: WNL Extremities: Normal Reflexes: Normal Cervical Dilatation: Fingertip Effacement: 75% Membranes: Ruptured Amniotic Fluid: Unevaluable Heart Rate: 120's ELIGIO CASTRO MD Sep 29, 2016 12:21
--- NOTE | 2016-09-29 12:32 | RADRPT ---
PROCEDURE: CERVICAL LENGTH ULTRASOUND CLINICAL INDICATION: labor. TECHNIQUE: Trans-vaginal imaging of the cervical canal was performed utilizing morgan-scale imaging. Sagittal and transverse images were obtained. Trans-abdominal images were also obtained. The dionicio ges were reviewed on a PACS workstation. COMPARISON: 09/28/2016. FINDINGS: There is a single live intrauterine . heart rate is 129 beats per minute. Position is cephalic and placenta is anterior grade 1. There is no placenta previa. The cervix is closed with a length of 3.6 cm. Incidental note is made of oligohydramnios with maxim um vertical pocket of amniotic fluid measuring 1.1 cm. IMPRESSION: 1. Cervical length is 3.6 cm. 2. Oligohydramnios. RPTAT: QQ .Michael Gastelum MD, Date Time Electronically viewed and signed by .Michael Gastelum MD, on 09/29/2016 12:31 .R/
[2016-09-29 12:47] LABS: BASOPHILS % 0.4 % (0.0-2.0); EOSINOPHILS # 0.2 10^3/ul (0.0-0.5); EOSINOPHILS % 1.6 % (0.0-7.0); HEMATOCRIT 34.8 % (37.0-47.0); HEMOGLOBIN 11.9 g/dl (12.0-16.0); LYMPHOCYTES # 1.7 10^3/ul (0.8-2.9); LYMPHOCYTES % 16.5 % (15.0-51.0); MEAN CORPUSCULAR HEMOGLOBIN 29.9 pg (29.0-33.0); MEAN CORPUSCULAR HGB CONC 34.3 g/dl (32.0-37.0); MEAN CORPUSCULAR VOLUME 87.2 fl (82.0-101.0); MEAN PLATELET VOLUME 7.8 fl (7.4-10.4); MONOCYTE # 0.5 10^3/ul (0.3-0.9); MONOCYTES % 4.8 % (0.0-11.0); NEUTROPHILS % 76.7 % (39.0-77.0); PLATELET COUNT 281 10^3/UL (140-440); RED BLOOD COUNT 3.99 10^6/ul (4.20-5.40); RED CELL DISTRIBUTION WIDTH 13.7 % (11.5-14.5); UNCORRECTED WBC 10.4 10^3/ul (4.8-10.8); WHITE BLOOD COUNT 10.4 10^3/ul (4.8-10.8)
[2016-09-29 12:55] LABS: CONDITION 1
[2016-09-29] MEDS ORDERED: MISOPROSTOL 200 MCG TAB PO ONE (22:00)
--- NOTE | 2016-09-29 22:20 | PN ---
Date/Time of Note Date/Time of Note DATE: 09/29/16 TIME: 22:14 OB Subjective Subjective Subjective Patient had SROM this morning having cramps, she is 21.5 weeks had cerclage early this month. in view of her early gestational age for a viable she was advised to remove the cerclage. Perinatology agreed to the management. at 10 pm we removed the cerclage without complications. patient will be induced with cytotec. OB Objective HEENT: WNL Heart: Rhythm Normal Lungs: Clear Abdomen: WNL Extremities: Normal Reflexes: Normal OB Assessment/Plan Reason for admission: rupture of membranes Plan: Induction ELIGIO CASTRO MD Sep 29, 2016 22:19
[2016-09-30] MEDS ORDERED: MISOPROSTOL 200 MCG TAB PO SCH
[2016-09-30] MEDS: CLINDAMYCIN 600 MG/D5W (PMX) 50 ML IVPB SCH ×4 (00:17→18:39)
[2016-09-30] MEDS: MISOPROSTOL 200 MCG TAB PO SCH ×2 (02:14→08:29)
[2016-09-30] MEDS: AZITHROMYCIN 500MG/NS (PMX) 250 ML IV SCH (02:14)
[2016-09-30] MEDS ORDERED: FENTAnyl 2MCG/ML-ROPIV 0.2% 100 ML ONE (03:52)
[2016-09-30] MEDS ORDERED: NALOXONE (0.4 MG/ML) INJ IV PRN ×2 (04:30→05:30)
[2016-09-30] MEDS ORDERED: FENTAnyl 2MCG/ML-ROPIV 0.2% 100 ML BAG EPI SCH ×2 (04:30→05:30)
[2016-09-30] MEDS: LACTATED RINGER'S 1,000 ML IV SCH ×3 (06:06→19:00)
[2016-09-30] MEDS: MULTIVIT/MIN/FOLATE/IRON/PREN TAB PO SCH (08:31)
[2016-09-30] MEDS: DOCUSATE SODIUM 100 MG CAP PO SCH (08:31)
[2016-09-30] MEDS: FERROUS SULFATE (EC) 325 MG TAB PO SCH (08:31)
[2016-09-30] MEDS ORDERED: DIPHENHYDRAMINE 50 MG INJ IM PRN (09:00)
[2016-09-30] MEDS ORDERED: CLINDAMYCIN 600 MG/D5W (PMX) 50 ML IVPB SCH (12:00)
[2016-09-30] MEDS ORDERED: DIPHENHYDRAMINE 50 MG INJ IV PRN (15:00)
[2016-09-30] MEDS ORDERED: MISOPROSTOL 200 MCG TAB VAG SCH (15:00)
[2016-09-30] MEDS ORDERED: MISOPROSTOL 200 MCG TAB SL STA (17:31)
[2016-09-30] MEDS ORDERED: ACETAMINOPHEN 325 MG TAB PO PRN (19:00)
[2016-09-30] MEDS ORDERED: OXYTOCIN 30 UNITS/LR 500 ML IV SCH (20:00)
[2016-09-30] MEDS ORDERED: OXYTOCIN 30 UNITS/LR 500 ML IVPB ONE (20:00)
--- NOTE | 2016-09-30 20:14 | LDN ---
Date/Time of Note Date/Time of Note DATE: 09/30/16 TIME: 20:07 Delivery Summary Patient was admitted at 21 + weeks with short cervix, underwent Cerclage placement and was receiving Nifedipine. Had SROM and was undergoing induction due to extreme prematurity and PPROM. I was called for delivery when the patient was complete and had urge to push. baby delivered spontaneously. Skin color brownish and echymotic.Does not looked a recent demise. not macerated. Scalp uneven and unsymetric. After clamping of the cord baby was handed to the mom. cord was left clamped and continued with cytotec 600 mg sublingual awaiting for spontaneous expulsion. after 2 hours exam performed, noted the placenta to be palpable at the external cervical os. Gentle traction applied and the cord was avulsed in mid segment. then by vaginal exam placenta that was already in the vagina and palpable at the cervical os was grasped and by gentle pulling it was removed and reassessed , noted to be complete. there was a small clot at the margin of the placenta covering an area of about 5 cm noted, can not r/o abruption. Placenta was sent to pathology. Placenta Delivered: Spontaneously Meconium: none Perineum intact?: Yes Perineal laceration: 0 Anesthesia type: Epidural Sponge & Needle done & correct: Yes All needle counts correct: Yes Any foreign bodies felt in the: No Problems: Delivery Information Apgars 1 Minute: 0 5 Minute: 0 Suctioning Nose & mouth suctioned at marica: No Delee suction performed: No Umbilical Cord Nuchal cord present X: 0 Cord Blood was obtained: No CESARIO CONTEH MD Sep 30, 2016 20:14
[2016-09-30] MEDS ORDERED: IBUPROFEN 600 MG TAB PO PRN ×2 (20:30→21:00)
[2016-09-30] MEDS ORDERED: MISOPROSTOL 200 MCG TAB SL SCH (21:00)
[2016-09-30] MEDS ORDERED: HYDROCODONE/APAP (5/325) TAB PO PRN (21:00)
--- NOTE | 2016-09-30 21:18 | DELSUM ---
Delivery Summary A-C Datetime Report Generated by CPN: 09/30/2016 21:18 DELIVERY PERSONNEL Bakery Deliverer: Turner, Nicole MATERNAL INFORMATION Delivery Anesthesia: Epidural Medications in Delivery: CYTOTEC 600 MCG SL Estimated Blood Loss (ml): 200 Placenta Cultured: Yes Maternal Complications: PROM; Other Other Maternal Complications: CVL 0.7 RN Comments: DEMISE @ 22 WEEKS LABOR SUMMARY EDC: 02/03/2017 00:00 No. Babies in Womb: 1 Attempted: No Labor Anesthesia: Epidural LABOR INFORMATION Reason for Induction: PROM; Other Reason for Induction- Other: CVL 0.7 CERCLAGE REMOVED; FETUS NOT VIABLE Onset of Labor: 09/30/2016 22:15 Complete Dilatation: 09/30/2016 17:00 Cervical Ripening Agents: Cytotec @ 200 MCG GIVEN VAGINALLY Cervical Ripening Agents: Cytotec @ 200MCG Cervical Ripening Agents: Cytotec @ (Annotations: 200 MCG PO) Cervical Ripening Agents: Cytotec @ 200 MCG PO Cervical Ripening Agents: Cytotec @ Oxytocin: N/A Group B Beta Strep: Not Done Antibiotics # of Doses: 9 Antibiotics Time of Last Dose: 1221 Steroids Given: None Reason Steroids Not Administered: Not Applicable MEMBRANES Membranes Rupture Method: Spontaneous Rupture of Membranes: 09/28/2016 21:00 Length of Rupture (hr): 44.17 Amniotic Fluid Color: Clear Amniotic Fluid Amount: Moderate (Annotations: 10 INCH DIAMETER [place] OF FLUID NOTED ON CHUX.) Amniotic Fluid Odor: None STAGES OF LABOR Stage 1 hr: -5 Stage 1 min: -15 Stage 2 hr: 0 Stage 2 min: 10 Stage 3 hr: 2 Stage 3 min: 32 Total Time in Labor hr: -2 Total Time in Labor min: -33 VAGINAL DELIVERY Episiotomy: None Laceration Extension: N/A Laceration Type: None Count Comment: BOA KIT USED AT BEDSIDE BABY A INFORMATION Infant Delivery Date/Time: 09/30/2016 17:10 Method of Delivery: Vaginal Born in Route : No : N/A Forceps: N/A Vacuum Extraction: N/A Shoulder Dystocia : No SHOULDER DYSTOCIA BABY A Delivery Date/Time: 09/30/2016 17:10 PRESENTATION/POSITION BABY A Presentation: Cephalic Cephalic Presentation: Vertex Breech Presentation: N/A PLACENTA INFORMATION BABY A Placenta Delivery Time : 09/30/2016 19:42 Placenta Method of Delivery: Manual Removal Placenta Status: Delivered INFORMATION BABY A Gestational Age at Delivery: 22.0 Gestational Status: - <34 Weeks Infant Outcome : Stillborn Sex: Male WEIGHT/LENGTH BABY A Infant Birthweight (gm): 500 Weight (lb): 1 Infant Weight (oz): 2 Infant Length (in): 19.00 Infant Length (cm): 48.26 CORD INFORMATION BABY A Nuchal Cord : N/A Cord Blood Taken: N/A Suction: None
[2016-09-30] MEDS: HYDROCODONE/APAP (5/325) TAB PO PRN (22:10)
[2016-10-01] MEDS ORDERED: WITCH HAZEL/GLYCERIN PAD PR PRN (01:00)
[2016-10-01] MEDS ORDERED: CARBOPROST 250 MCG INJ IM PRN (01:00)
[2016-10-01] MEDS ORDERED: OXYTOCIN 30 UNITS/LR 500 ML IV PRN (01:00)
[2016-10-01] MEDS ORDERED: MISOPROSTOL 200 MCG TAB PR PRN (01:00)
[2016-10-01] MEDS ORDERED: SENNA/DOCUSATE NA (8.6MG/50MG) TAB PO PRN (01:00)
[2016-10-01] MEDS ORDERED: BENZOCAINE 20% 56 ML SPRAY TOP PRN (01:00)
[2016-10-01] MEDS: LACTATED RINGER'S 1,000 ML IV* SCH ×2 (01:21→08:57)
[2016-10-01] MEDS: CLINDAMYCIN 600 MG/D5W (PMX) 50 ML IVPB SCH ×3 (01:35→11:33)
[2016-10-01] MEDS: HYDROCODONE/APAP (5/325) TAB PO PRN ×2 (04:22→08:57)
[2016-10-01 07:21] LABS: BASOPHIL # 0.1 10^3/ul (0.0-0.1); BASOPHILS % 0.4 % (0.0-2.0); EOSINOPHILS # 0.2 10^3/ul (0.0-0.5); EOSINOPHILS % 1.9 % (0.0-7.0); HEMOGLOBIN 11.4 g/dl (12.0-16.0); LYMPHOCYTES # 2.5 10^3/ul (0.8-2.9); LYMPHOCYTES % 18.7 % (15.0-51.0); MEAN CORPUSCULAR HEMOGLOBIN 30.4 pg (29.0-33.0); MEAN CORPUSCULAR HGB CONC 34.5 g/dl (32.0-37.0); MEAN CORPUSCULAR VOLUME 87.9 fl (82.0-101.0); MEAN PLATELET VOLUME 8.1 fl (7.4-10.4); MONOCYTE # 0.9 10^3/ul (0.3-0.9); MONOCYTES % 6.7 % (0.0-11.0); NEUTROPHIL # 9.6 10^3/ul (1.6-7.5); NEUTROPHILS % 72.3 % (39.0-77.0); PLATELET COUNT 243 10^3/UL (140-440); RED BLOOD COUNT 3.76 10^6/ul (4.20-5.40); RED CELL DISTRIBUTION WIDTH 13.5 % (11.5-14.5); UNCORRECTED WBC 13.3 10^3/ul (4.8-10.8); WHITE BLOOD COUNT 13.3 10^3/ul (4.8-10.8)
[2016-10-01 07:31] LABS: CONDITION 1
[2016-10-01] MEDS ORDERED: AZITHROMYCIN 250 MG TAB PO SCH (09:00)
--- NOTE | 2016-10-01 12:43 | PD.PPDC ---
MEDICAL AFFAIRS MANAGER Discharge Instruction Condition Patient Condition: Good Diet Diet: Resume Regular Diet Activity/Restrictions Activity: Normal Activity May Shower Restrictions: No Exercising No Lifting No Driving No Sexual Activity Nothing in the Vagina No [place] No Tampons, douche Follow-up Follow-up with Physician: 6, Week/Weeks Return to clinic for TRAINING COORDINATOR Instructions: Fever greater than 101 Chills Worsening abdominal pain Excessive Vaginal Bleeding More than 2 pads per hour Unable to tolerate diet OB Instructions: Breast Tenderness Depression Blurried Vision Headache ELIGIO CASTRO MD Oct 01, 2016 12:43
--- NOTE | 2016-10-01 12:58 | DS ---
Date/Time of Note Date/Time of Note DATE: 10/01/16 TIME: 12:55 Obstetrical Discharge Record Final Diagnosis Final Diagnosis: delivered Other Final Diagnosis [facility] [employer]IME[facility] DEMISE DELIVERY Vaginal Delivery Obstetrical Delivery: Spontaneous Demise Demise: at >20 weeks Complications Other Induction: Yes Rupture of Membranes: Yes Gestational Age at Rupture 21,5 WEEKS WITH CERCLAGE HISTORY ADMITTED FOR BACK PAIN , SHORT CERVIX DIAGNOSED, PATIENT WAS ADMITTED. PATIENT WAS BEING TREATED WITH ANTIBIOTICS AND PROCARDIA AT THE SAME TIME WITH STRICT BED REST. SHE HAD NO CONTRACTIONS ON THE MONITOR BUT SHE HAD PAIN AND BACK PAIN. LEUKOCYTOSIS WAS OBSERVED AND SHE RUPTURE MEMBRANES SPONTANEOUSLY NEXT DAY OF ADMISSION. PATIENT WAS COUNSELED BY ME AND PERINATOLOGY AND SHE HAD THE CERCLAGE REMOVED. SHE FOLLOWED IN LABOR AND LABOR WAS AUGMENTED WITH CYTOTEC. SHE HAD AN UNEVENTFUL VAGINAL DELIVERY OF A NON VIABLE MALE FETUS WITHOUT LIFE SIGNS. SHE WAS OBSERVED FOR BLEEDING AND AN US WAS PERFORMED TO CONFIRM A COMPLETE DELIVERY WITHOUT RETAINED PRODUCTS OF CONCEPTION, SHE WAS DC HOME AFTER THAT Placenta Delivered: Spontaneously Condition on Discharge Physical Assessment Voiding: Yes Bowel Movement: Yes Breast: Soft, non-tender, Filling Fundus: Firm Calf Tenderness: No Patient Condition: Good ELIGIO CASTRO MD Oct 01, 2016 12:58
--- NOTE | 2016-10-01 15:06 | RADRPT ---
PROCEDURE: US Pelvis. CLINICAL INDICATION: Pelvic pain. History of demise and D and C yesterday. TECHNIQUE: The pelvis was evaluated with transabdominal and transvaginal sonography in the axial a nd sagittal planes. COMPARISON: 09/28/2016. FINDINGS: Previously noted intrauterine gestation is no longer present. The uterus is enlarged measuring 15.2 x 7.8 x 9.0 cm consistent with the recent . The endometrium is thickened and heterogeneous measuring 26.8 mm. Fluid is present within the endocervical canal. The ovaries are not visualized . There is no other pelvic mass or free fluid. IMPRESSION: 1. Intrauterine gestation no longer present. 2. Thickened heterogeneous endometrium. This may indicate blood clot or retained products of yomaira ption. Clinical correlation and follow-up advised. 3. Fluid in the endocervical canal. 4. Ovaries not visualized. RPTAT: QQ .Michael Gastelum MD, MD Date Time Electronically viewed and signed by .Michael Gastelum MD, MD on 10/01/2016 15:05 .R/
== END 2016-10-01 16:20 | disposition home or self-care (01) | DRG 981 ==
LOC: OBT 06:10 → L-D 06:10 → OBT 08:20 → L-D 08:22 → OBG 08:54 → L-D 09-29 21:36 → OBG 09-30 23:33
PROVIDERS: ADMIT Obstetrics & Gynecology; ATTEND Obstetrics & Gynecology
PROC: 4A1HX4Z Monitoring of Products of Conception, Cardiac Electrical Activity, External Approach (ICD-10-PCS; 2016-09-28)
PROC: 10E0XZZ Delivery of Products of Conception, External Approach (ICD-10-PCS; principal; 2016-09-30)
PROC: 0UCC7ZZ Extirpation of Matter from Cervix, Via Natural or Artificial Opening (ICD-10-PCS; 2016-09-30)
DX: O26.872 Cervical shortening, second trimester (principal); O75.3 Other infection during labor; N39.0 Urinary tract infection, site not specified; O34.32 Maternal care for cervical incompetence, second trimester; B95.2 Enterococcus as the cause of diseases classified elsewhere; O42.012 Preterm premature rupture of membranes, onset of labor within 24 hours of rupture, second trimester; Z3A.21 21 weeks gestation of pregnancy; Z37.1 Single stillbirth
CPT/HCPCS: 62319; 76815; 76817; 76830; 76856; 80053; 84112; 85025; 85610; 85730; 86140; 86850; 86900; 86901; 87086; 87340; 88307; G0463; J0456; J1200; J2590; J3010; J7120